=== PATIENT | female | born 1955 | race Caucasian/White ===

== ENCOUNTER 2021-04-14 04:25 | Inpatient (IN) ==
[2021-04-14] MEDS ORDERED: ONDANSETRON 4 MG/2 ML VIAL IV STA (04:54)
[2021-04-14] MEDS ORDERED: ENOXAPARIN 100 MG/ML SYRINGE SUBCUT STA (04:54)
[2021-04-14] MEDS ORDERED: NITROGLYCERIN 2% OINT 1 INCH/GM PACK TOP STA (04:54)
[2021-04-14] MEDS ORDERED: MORPHINE 4 MG/1 ML VIAL IV STA (05:04)
[2021-04-14] MEDS ORDERED: ENOXAPARIN 120 MG/0.8 ML SYRINGE SUBCUT ONE (05:07)
[2021-04-14 05:36] LABS: Basophils # 0.1 10*3/uL (0.0-0.2); Basophils % 0.6 % (0.0-0.8); Eosinophils # 0.1 10*3/uL (0.0-0.87); Eosinophils % 0.7 % (0.00-10.9); Hematocrit 29.2 VOL% (35.7-47.0); Hemoglobin 8.7 GM/DL (12.0-16.0); Immature Granulocytes % 0.6 %; Immature Granulocytes Absolute 0.05 #; Lymphocytes # 1.6 10*3/uL (1.4-4.0); Lymphocytes % 17.8 % (21.3-54.2); Mean Corpuscular HGB Conc 29.8 GM/DL (32-36); Mean Corpuscular Volume 72.3 FL (87-102); Mean Platelet Volume 10.8 FL (9.6-12.0); Monocytes % 4.5 % (1.7-12.7); Neutrophils % 75.8 % (38.7-73.9); Platelet Count 305 T/CUMM (130-400); Red Blood Count 4.04 MC/CUMM (3.8-5.5); Red Cell Distribution Width 17.5 % (9.3-17.3); White Blood Count 8.8 T/CUMM (4-12)
[2021-04-14 05:41] LABS: PT Patient Result 10.9 SECS (10.5-12.0)
[2021-04-14 05:52] LABS: Alanine Aminotransferase 26 U/L (13-56); Albumin 3.8 G/DL (3.4-5.0); Alkaline Phosphatase 75 U/L (45-117); Aspartate Amino Transferase 31 U/L (0-37); Blood Urea Nitrogen 19 MG/DL (7-18); Calcium 9.2 MG/DL (8.5-10.1); Carbon Dioxide 20 MMOL/L (21-32); Estimated Glom Filtration Rate 96 ML/MIN; Glucose 189 MG/DL (74-106); Osmolality,Calculated 283.5 MOS/KG (273-304); Potassium 3.7 MMOL/L (3.5-5.1); Sodium 139 MMOL/L (136-145)
[2021-04-14] MEDS ORDERED: diphenhydrAMINE CAP 50 MG CAPSULE PO ONE ×2 (07:02→07:30)
[2021-04-14] MEDS ORDERED: DIAZEPAM 5 MG TABLET PO ONE (07:02)
[2021-04-14] MEDS ORDERED: fentaNYL 100 MCG/2 ML VIAL ONE (07:21)
[2021-04-14] MEDS ORDERED: MIDAZOLAM 2 MG/2 ML VIAL ONE ×2 (07:21→07:37)
[2021-04-14] MEDS ORDERED: VERAPAMIL 5 MG/2 ML VIAL ONE (07:23)
[2021-04-14] MEDS ORDERED: diphenhydrAMINE CAP 25 MG CAPSULE PO ONE (07:30)
[2021-04-14] MEDS ORDERED: HYDROmorphone 2 MG/1 ML VIAL ONE (07:37)
[2021-04-14] MEDS ORDERED: diphenhydrAMINE 50 MG/1 ML VIAL ONE (07:37)
[2021-04-14] MEDS ORDERED: ALUM/MAG/SIMETH/LIDO VISC 1:1 30 ML BOTTLE PO ONE (07:50)
[2021-04-14] MEDS ORDERED: ACETAMINOPHEN 325 MG TABLET PO PRN (07:53)
[2021-04-14] MEDS ORDERED: LIDOCAINE 1% 20 ML VIAL ONE (08:03)
[2021-04-14] MEDS ORDERED: HEPARIN/NACL 0.9% 2 UNITS/ML 2,000 UNIT/1,000 ML BAG IV ONE (08:03)
[2021-04-14] MEDS ORDERED: GLUCAGON 1 MG VIAL IM PRN ×2 (08:04→12:21)
[2021-04-14] MEDS ORDERED: DEXTROSE 10% 25 GM/250 ML BAG IV PRN (08:04)
[2021-04-14] MEDS: SODIUM CHLORIDE 0.9% 1,000 ML IV SCH ×2 (08:10→18:17)
[2021-04-14] MEDS ORDERED: RANOLAZINE 500 MG TABLET PO SCH (09:00)
[2021-04-14] MEDS ORDERED: METOPROLOL SUCCINATE XL 25 MG TABLET PO SCH (09:00)
[2021-04-14] MEDS ORDERED: FAMOTIDINE 20 MG TABLET PO SCH (09:00)
[2021-04-14] MEDS ORDERED: PANTOPRAZOLE 40 MG TABLET PO SCH ×2 (09:00→12:21)
[2021-04-14] MEDS ORDERED: INSULIN REGULAR 100 UNIT/ML SUBCUT SCH (11:30)
[2021-04-14] MEDS ORDERED: ONDANSETRON 4 MG/2 ML VIAL IV PRN (12:21)
[2021-04-14] MEDS ORDERED: tiZANidine 4 MG TABLET PO PRN (12:21)
[2021-04-14] MEDS ORDERED: SODIUM CHLORIDE 0.9% 1,000 ML IV SCH (12:21)
[2021-04-14] MEDS ORDERED: traMADol 50 MG TABLET PO PRN (12:21)
[2021-04-14] MEDS ORDERED: MAGNESIUM SULF RIDER 2 GM/50 ML PREMIX IV PRN (12:21)
[2021-04-14] MEDS ORDERED: MORPHINE 2 MG/1 ML SYRINGE IV PRN (12:21)
[2021-04-14] MEDS ORDERED: POTASSIUM CHLORIDE 20 MEQ TABLET PO PRN (12:21)
[2021-04-14] MEDS ORDERED: MAGNESIUM SULF RIDER 4 GM/100 ML PREMIX IV PRN (12:21)
[2021-04-14] MEDS ORDERED: NITROGLYCERIN 2% OINT 1 INCH/GM PACK TOP SCH (12:21)
[2021-04-14] MEDS ORDERED: DEXTROSE 10% 250 ML BAG IV PRN (12:21)
[2021-04-14] MEDS ORDERED: ENOXAPARIN 40 MG/0.4 ML SYRINGE SUBCUT SCH (12:21)
[2021-04-14] MEDS: INSULIN REGULAR 100 UNIT/ML SUBCUT SCH ×3 (12:32→23:58)
[2021-04-14] MEDS ORDERED: POTASSIUM CHLORIDE 10 MEQ TABLET PO PRN (12:42)
[2021-04-14 13:04] LABS: % Iron Saturation 4.4 % (18-50)
[2021-04-14 13:09] LABS: VLDL Cholesterol 66.4 MG/DL
[2021-04-14] MEDS: GABAPENTIN 300 MG CAPSULE PO SCH ×3 (13:09→20:23)
[2021-04-14] MEDS: ISOSORBIDE MONONITRATE 30 MG TABLET PO SCH (13:09)
[2021-04-14] MEDS: ASPIRIN EC 81 MG TABLET PO SCH (13:09)
[2021-04-14] MEDS: MAGNESIUM CHLORIDE 64 MG TABLET PO SCH (13:10)
[2021-04-14] MEDS: lisinopriL 20 MG TABLET PO SCH (13:10)
[2021-04-14] MEDS: LORATADINE 10 MG TABLET PO SCH (15:17)
[2021-04-14] MEDS: OMEGA 3 ACID ETHYL ESTERS 1 GM CAPSULE PO SCH ×2 (15:17→20:23)
[2021-04-14] MEDS: FENOFIBRATE 145 MG TABLET PO SCH (18:17)
[2021-04-14] MEDS: ROSUVASTATIN 20 MG TABLET PO SCH (18:17)
[2021-04-14] MEDS: DULoxetine 30 MG CAPSULE PO SCH (20:23)
[2021-04-14] MEDS: METOPROLOL SUCCINATE XL 50 MG TABLET PO SCH (20:24)
[2021-04-14] MEDS: ZALEPLON 5 MG CAPSULE PO SCH (20:24)
[2021-04-14] MEDS: PANTOPRAZOLE 40 MG TABLET PO SCH (20:24)
[2021-04-15] MEDS ORDERED: MORPHINE 4 MG/1 ML VIAL IV PRN (00:05)
[2021-04-15 06:56] LABS: Calcium 8.7 MG/DL (8.5-10.1); Osmolality,Calculated 280.4 MOS/KG (273-304); Potassium 3.7 MMOL/L (3.5-5.1)
[2021-04-15 07:09] LABS: Basophils % 0.4 % (0.0-0.8); Eosinophils # 0.1 10*3/uL (0.0-0.87); Hematocrit 30.2 VOL% (35.7-47.0); Immature Granulocytes % 0.6 %; Immature Granulocytes Absolute 0.07 #; Mean Corpuscular HGB Conc 29.1 GM/DL (32-36); Mean Corpuscular Volume 73.7 FL (87-102); Mean Platelet Volume 11.2 FL (9.6-12.0); Monocytes % 5.8 % (1.7-12.7); Neutrophils % 74.2 % (38.7-73.9); Platelet Count 369 T/CUMM (130-400); Red Cell Distribution Width 18.1 % (9.3-17.3); White Blood Count 10.8 T/CUMM (4-12)
[2021-04-15 07:10] LABS: Hemoglobin 8.8 GM/DL (12.0-16.0)
[2021-04-15] MEDS: INSULIN REGULAR 100 UNIT/ML SUBCUT SCH ×3 (07:12→18:05)
[2021-04-15] MEDS ORDERED: LACTATED RINGERS 1,000 ML IV SCH (08:00)
[2021-04-15] MEDS ORDERED: propofoL 200 MG/20 ML VIAL IV ONE (09:21)
[2021-04-15] MEDS ORDERED: LIDOCAINE 2% 5 ML VIAL ONE (09:21)
[2021-04-15] MEDS ORDERED: FERRIC GLUCONATE COMPLEX 125 MG in SODIUM CHLORIDE 0.9% 100 ML IV ONE (11:00)
[2021-04-15] MEDS: LINACLOTIDE 145 MCG CAPSULE PO SCH (11:28)
[2021-04-15] MEDS: GABAPENTIN 300 MG CAPSULE PO SCH ×3 (11:29→21:19)
[2021-04-15] MEDS: OMEGA 3 ACID ETHYL ESTERS 1 GM CAPSULE PO SCH ×2 (11:29→21:20)
[2021-04-15] MEDS: LORATADINE 10 MG TABLET PO SCH (11:29)
[2021-04-15] MEDS: ISOSORBIDE MONONITRATE 30 MG TABLET PO SCH (11:29)
[2021-04-15] MEDS: ASPIRIN EC 81 MG TABLET PO SCH (11:30)
[2021-04-15] MEDS: CALCIUM (CARBONATE) 500 MG TABLET PO SCH (11:30)
[2021-04-15] MEDS: PANTOPRAZOLE 40 MG TABLET PO SCH (11:30)
[2021-04-15] MEDS: MAGNESIUM CHLORIDE 64 MG TABLET PO SCH (11:30)
[2021-04-15] MEDS: METOPROLOL SUCCINATE XL 50 MG TABLET PO SCH ×2 (11:30→21:19)
[2021-04-15] MEDS: lisinopriL 20 MG TABLET PO SCH (11:30)
[2021-04-15] MEDS: NON-FORMULARY MEDICATION (L. Gasseri-B. Bifidum-B Longum [Phillips' Colon Health] 1.5 bill PO SCH (11:59)
[2021-04-15] MEDS: SODIUM CHLORIDE 0.9% 1,000 ML IV SCH (20:02)
[2021-04-15] MEDS: PANTOPRAZOLE 40 MG VIAL IV SCH (21:18)
[2021-04-15] MEDS: FENOFIBRATE 145 MG TABLET PO SCH (21:19)
[2021-04-15] MEDS: DULoxetine 30 MG CAPSULE PO SCH (21:19)
[2021-04-15] MEDS: ROSUVASTATIN 20 MG TABLET PO SCH (21:20)
[2021-04-15] MEDS: ZALEPLON 5 MG CAPSULE PO SCH (21:20)
[2021-04-16] MEDS: INSULIN REGULAR 100 UNIT/ML SUBCUT SCH ×4 (01:05→18:55)
[2021-04-16 05:47] LABS: Basophils % 0.4 % (0.0-0.8); Eosinophils # 0.2 10*3/uL (0.0-0.87); Eosinophils % 2.4 % (0.00-10.9); Hematocrit 31.6 VOL% (35.7-47.0); Hemoglobin 9.3 GM/DL (12.0-16.0); Immature Granulocytes % 0.8 %; Immature Granulocytes Absolute 0.07 #; Lymphocytes # 2.2 10*3/uL (1.4-4.0); Lymphocytes % 24.2 % (21.3-54.2); Mean Corpuscular HGB Conc 29.4 GM/DL (32-36); Mean Corpuscular Volume 75.1 FL (87-102); Mean Platelet Volume 11.3 FL (9.6-12.0); Monocytes % 7.1 % (1.7-12.7); NRBC # 0.02 10*3/uL; Neutrophils % 65.1 % (38.7-73.9); Platelet Count 269 T/CUMM (130-400); Red Blood Count 4.21 MC/CUMM (3.8-5.5); Red Cell Distribution Width 18.1 % (9.3-17.3); White Blood Count 8.9 T/CUMM (4-12)
[2021-04-16] MEDS: LINACLOTIDE 145 MCG CAPSULE PO SCH (09:07)
[2021-04-16] MEDS: ASPIRIN EC 81 MG TABLET PO SCH (09:08)
[2021-04-16] MEDS: MAGNESIUM CHLORIDE 64 MG TABLET PO SCH (09:08)
[2021-04-16] MEDS: GABAPENTIN 300 MG CAPSULE PO SCH ×3 (09:08→21:25)
[2021-04-16] MEDS: METOPROLOL SUCCINATE XL 50 MG TABLET PO SCH ×2 (09:10→21:25)
[2021-04-16] MEDS: lisinopriL 20 MG TABLET PO SCH (09:10)
[2021-04-16] MEDS: OMEGA 3 ACID ETHYL ESTERS 1 GM CAPSULE PO SCH ×2 (09:11→21:24)
[2021-04-16] MEDS: CALCIUM (CARBONATE) 500 MG TABLET PO SCH (09:11)
[2021-04-16] MEDS: ISOSORBIDE MONONITRATE 30 MG TABLET PO SCH (09:11)
[2021-04-16] MEDS: LORATADINE 10 MG TABLET PO SCH (09:11)
[2021-04-16] MEDS: PANTOPRAZOLE 40 MG VIAL IV SCH ×2 (09:12→21:29)
[2021-04-16] MEDS: NON-FORMULARY MEDICATION (L. Gasseri-B. Bifidum-B Longum [Phillips' Colon Health] 1.5 bill PO SCH (09:17)
[2021-04-16] MEDS: FERRIC GLUCONATE COMPLEX 125 MG in SODIUM CHLORIDE 0.9% 100 ML IV SCH (09:22)
[2021-04-16] MEDS: SODIUM CHLORIDE 0.9% 1,000 ML IV SCH (18:55)
[2021-04-16] MEDS: DULoxetine 30 MG CAPSULE PO SCH (21:24)
[2021-04-16] MEDS: ZALEPLON 5 MG CAPSULE PO SCH (21:24)
[2021-04-16] MEDS: FENOFIBRATE 145 MG TABLET PO SCH (21:24)
[2021-04-16] MEDS: ROSUVASTATIN 20 MG TABLET PO SCH (21:25)
[2021-04-17] MEDS: INSULIN REGULAR 100 UNIT/ML SUBCUT SCH ×4 (00:20→18:28)
[2021-04-17 07:07] LABS: Basophils % 0.5 % (0.0-0.8); Eosinophils # 0.3 10*3/uL (0.0-0.87); Hematocrit 32.3 VOL% (35.7-47.0); Hemoglobin 9.6 GM/DL (12.0-16.0); Immature Granulocytes % 1.2 %; Lymphocytes # 1.9 10*3/uL (1.4-4.0); Lymphocytes % 22.5 % (21.3-54.2); Mean Corpuscular HGB Conc 29.7 GM/DL (32-36); Mean Corpuscular Volume 75.8 FL (87-102); Monocytes % 7.2 % (1.7-12.7); NRBC # 0.04 10*3/uL; Neutrophils % 64.6 % (38.7-73.9); Platelet Count 152 T/CUMM (130-400); Red Blood Count 4.26 MC/CUMM (3.8-5.5); Red Cell Distribution Width 18.6 % (9.3-17.3); White Blood Count 8.2 T/CUMM (4-12)
[2021-04-17 07:59] LABS: Anisocytosis 2+; Hypochromia 3+
[2021-04-17 08:00] LABS: Microcytosis 2+; Spherocytes Few
[2021-04-17 08:01] LABS: Platelet Estimate Adequate; Polychromasia Slight
[2021-04-17] MEDS: ASPIRIN EC 81 MG TABLET PO SCH (09:21)
[2021-04-17] MEDS: ISOSORBIDE MONONITRATE 30 MG TABLET PO SCH (09:21)
[2021-04-17] MEDS: METOPROLOL SUCCINATE XL 50 MG TABLET PO SCH ×2 (09:21→21:07)
[2021-04-17] MEDS: LINACLOTIDE 145 MCG CAPSULE PO SCH (09:21)
[2021-04-17] MEDS: MAGNESIUM CHLORIDE 64 MG TABLET PO SCH (09:21)
[2021-04-17] MEDS: CALCIUM (CARBONATE) 500 MG TABLET PO SCH (09:21)
[2021-04-17] MEDS: lisinopriL 20 MG TABLET PO SCH (09:22)
[2021-04-17] MEDS: OMEGA 3 ACID ETHYL ESTERS 1 GM CAPSULE PO SCH ×2 (09:22→21:07)
[2021-04-17] MEDS: NON-FORMULARY MEDICATION (L. Gasseri-B. Bifidum-B Longum [Phillips' Colon Health] 1.5 bill PO SCH (09:22)
[2021-04-17] MEDS: LORATADINE 10 MG TABLET PO SCH (09:22)
[2021-04-17] MEDS: GABAPENTIN 300 MG CAPSULE PO SCH ×3 (09:22→21:07)
[2021-04-17] MEDS: PANTOPRAZOLE 40 MG VIAL IV SCH ×2 (09:25→21:12)
[2021-04-17] MEDS: FERRIC GLUCONATE COMPLEX 125 MG in SODIUM CHLORIDE 0.9% 100 ML IV SCH (09:28)
[2021-04-17] MEDS ORDERED: BISACODYL 5 MG TABLET PO ONE (15:00)
[2021-04-17] MEDS ORDERED: POLYETHYLENE GLYCOL POWDER 255 GM BOTTLE PO ONE (18:00)
[2021-04-17] MEDS: FENOFIBRATE 145 MG TABLET PO SCH (21:07)
[2021-04-17] MEDS: DULoxetine 30 MG CAPSULE PO SCH (21:07)
[2021-04-17] MEDS: ROSUVASTATIN 20 MG TABLET PO SCH (21:07)
[2021-04-17] MEDS: ZALEPLON 5 MG CAPSULE PO SCH (21:07)
[2021-04-18] MEDS: INSULIN REGULAR 100 UNIT/ML SUBCUT SCH ×2 (00:22→06:43)
[2021-04-18] MEDS: SODIUM CHLORIDE 0.9% 1,000 ML IV SCH (04:53)
[2021-04-18] MEDS ORDERED: POLYETHYLENE GLYCOL POWDER 255 GM BOTTLE PO ONE (05:00)
[2021-04-18 05:50] LABS: PT Patient Result 11.3 SECS (10.5-12.0)
[2021-04-18 06:25] LABS: Basophils % 0.5 % (0.0-0.8); Eosinophils # 0.4 10*3/uL (0.0-0.87); Eosinophils % 4.8 % (0.00-10.9); Hematocrit 34.3 VOL% (35.7-47.0); Immature Granulocytes % 0.8 %; Immature Granulocytes Absolute 0.06 #; Lymphocytes # 1.8 10*3/uL (1.4-4.0); Mean Corpuscular HGB Conc 29.2 GM/DL (32-36); Mean Corpuscular Volume 76.9 FL (87-102); Mean Platelet Volume 12.2 FL (9.6-12.0); Monocytes % 6.4 % (1.7-12.7); NRBC # 0.02 10*3/uL; Neutrophils % 63.5 % (38.7-73.9); Platelet Count 143 T/CUMM (130-400); Red Blood Count 4.46 MC/CUMM (3.8-5.5); Red Cell Distribution Width 19.8 % (9.3-17.3); White Blood Count 7.6 T/CUMM (4-12)
[2021-04-18] MEDS ORDERED: LIDOCAINE 2% 5 ML VIAL ONE (09:03)
[2021-04-18] MEDS ORDERED: propofoL 200 MG/20 ML VIAL IV ONE ×2 (09:03→09:15)
[2021-04-18] MEDS ORDERED: ONDANSETRON 4 MG/2 ML VIAL ONE (09:04)
[2021-04-18] MEDS ORDERED: LACTATED RINGERS 1,000 ML IV SCH ×2 (09:18→09:30)
[2021-04-18 10:27] VITALS: BP 144/73
[2021-04-18] MEDS: METOPROLOL SUCCINATE XL 50 MG TABLET PO SCH (10:51)
[2021-04-18] MEDS: OMEGA 3 ACID ETHYL ESTERS 1 GM CAPSULE PO SCH (10:52)
[2021-04-18] MEDS: ISOSORBIDE MONONITRATE 30 MG TABLET PO SCH (10:52)
[2021-04-18] MEDS: CALCIUM (CARBONATE) 500 MG TABLET PO SCH (10:53)
[2021-04-18] MEDS: GABAPENTIN 300 MG CAPSULE PO SCH (10:53)
[2021-04-18] MEDS: LORATADINE 10 MG TABLET PO SCH (10:53)
[2021-04-18] MEDS: lisinopriL 20 MG TABLET PO SCH (10:53)
[2021-04-18] MEDS: MAGNESIUM CHLORIDE 64 MG TABLET PO SCH (10:54)
[2021-04-18] MEDS: PANTOPRAZOLE 40 MG VIAL IV SCH (10:54)
[2021-04-18] MEDS: ASPIRIN EC 81 MG TABLET PO SCH (10:54)
[2021-04-18] MEDS: FERRIC GLUCONATE COMPLEX 125 MG in SODIUM CHLORIDE 0.9% 100 ML IV SCH (11:20)
[2021-04-18] MEDS: NON-FORMULARY MEDICATION (L. Gasseri-B. Bifidum-B Longum [Phillips' Colon Health] 1.5 bill PO SCH (11:21)
[2021-04-18] MEDS: LINACLOTIDE 145 MCG CAPSULE PO SCH (11:21)
== END 2021-04-18 14:35 | disposition home or self-care (01) | DRG 811 ==
LOC: EDUNIT# → EDBD → N.ED 04:25 → N.EDINP 04:25 → N.5E 07:30
PROVIDERS: ADMIT Internal Medicine Cardiovascular Disease; ATTEND Internal Medicine Cardiovascular Disease
PROC: CLCCHCL (ICD-10-PCS; 2021-04-14 07:45)

== ENCOUNTER 2021-05-30 21:14 | Observation (INO) ==
[2021-05-30] MEDS ORDERED: ONDANSETRON 4 MG/2 ML VIAL IV STA (21:47)
[2021-05-30] MEDS ORDERED: SODIUM CHLORIDE 0.9% 1,000 ML IV STA (21:47)
[2021-05-30] MEDS ORDERED: PANTOPRAZOLE INJ 80 MG in SODIUM CHLORIDE 0.9% 100 ML IV STA ×2 (21:47→21:49)
[2021-05-30 21:55] LABS: Basophils % 0.5 % (0.0-0.8); Eosinophils % 0.2 % (0.00-10.9); Hematocrit 33.2 VOL% (35.7-47.0); Hemoglobin 10.3 GM/DL (12.0-16.0); Immature Granulocytes % 0.4 %; Immature Granulocytes Absolute 0.03 #; Lymphocytes # 1.7 10*3/uL (1.4-4.0); Lymphocytes % 19.9 % (21.3-54.2); Mean Corpuscular Volume 83.4 FL (87-102); Mean Platelet Volume 11.3 FL (9.6-12.0); Monocytes # 0.2 10*3/uL (0.11-0.8); Monocytes % 2.9 % (1.7-12.7); Neutrophils % 76.1 % (38.7-73.9); Platelet Count 296 T/CUMM (130-400); Red Blood Count 3.98 MC/CUMM (3.8-5.5); Red Cell Distribution Width 23.8 % (9.3-17.3); White Blood Count 8.4 T/CUMM (4-12)
[2021-05-30 22:05] LABS: Alanine Aminotransferase 32 U/L (13-56); Albumin 3.8 G/DL (3.4-5.0); Alkaline Phosphatase 51 U/L (45-117); Aspartate Amino Transferase 21 U/L (0-37); Bilirubin,Total < 0.39 MG/DL (0.20-1.00); Blood Urea Nitrogen 31 MG/DL (7-18); Calcium 9.9 MG/DL (8.5-10.1); Carbon Dioxide 24 MMOL/L (21-32); Chloride 113 MMOL/L (98-107); Estimated Glom Filtration Rate 112 ML/MIN; Glucose 160 MG/DL (74-106); INR 1.1; Osmolality,Calculated 299.6 MOS/KG (273-304); PT Patient Result 12.3 SECS (10.5-12.0); Partial Thromboplastin Time < 20.0 SECS (23.8-32.1); Potassium 3.4 MMOL/L (3.5-5.1); Sodium 146 MMOL/L (136-145)
[2021-05-30] MEDS ORDERED: PANTOPRAZOLE INJ 200 MG in SODIUM CHLORIDE 0.9% 250 ML IV SCH (23:00)
[2021-05-30] MEDS ORDERED: MORPHINE 2 MG/1 ML SYRINGE IV PRN (23:36)
[2021-05-30] MEDS ORDERED: ONDANSETRON 4 MG/2 ML VIAL IV PRN (23:36)
[2021-05-30] MEDS ORDERED: diphenhydrAMINE CAP 25 MG CAPSULE PO PRN (23:36)
[2021-05-30] MEDS ORDERED: GLUCAGON 1 MG VIAL IM PRN (23:36)
[2021-05-30] MEDS ORDERED: ZALEPLON 5 MG CAPSULE PO PRN (23:36)
[2021-05-30] MEDS ORDERED: ACETAMINOPHEN 325 MG TABLET PO PRN (23:36)
[2021-05-30] MEDS ORDERED: guaiFENesin/DM ER 600-30 MG TABLET PO PRN (23:36)
[2021-05-30] MEDS ORDERED: DEXTROSE 10% 250 ML BAG IV PRN (23:36)
[2021-05-30] MEDS ORDERED: FAMOTIDINE 20 MG/2 ML VIAL IV SCH (23:45)
[2021-05-31] MEDS ORDERED: POTASSIUM CHLORIDE 20 MEQ TABLET PO STA (00:30)
[2021-05-31 05:08] LABS: Basophils # 0.1 10*3/uL (0.0-0.2); Basophils % 0.7 % (0.0-0.8); Eosinophils % 0.1 % (0.00-10.9); Hematocrit 29.1 VOL% (35.7-47.0); Hemoglobin 9.1 GM/DL (12.0-16.0); Immature Granulocytes % 0.4 %; Immature Granulocytes Absolute 0.03 #; Lymphocytes # 2.7 10*3/uL (1.4-4.0); Mean Corpuscular HGB Conc 31.3 GM/DL (32-36); Mean Corpuscular Volume 83.6 FL (87-102); Mean Platelet Volume 11.3 FL (9.6-12.0); Monocytes # 0.5 10*3/uL (0.11-0.8); Monocytes % 6.3 % (1.7-12.7); Neutrophils % 56.5 % (38.7-73.9); Platelet Count 255 T/CUMM (130-400); Red Blood Count 3.48 MC/CUMM (3.8-5.5); Red Cell Distribution Width 24.1 % (9.3-17.3); White Blood Count 7.5 T/CUMM (4-12)
[2021-05-31 05:34] LABS: Calcium 9.2 MG/DL (8.5-10.1); Osmolality,Calculated 299.3 MOS/KG (273-304); Potassium 3.9 MMOL/L (3.5-5.1)
[2021-05-31] MEDS ORDERED: LORATADINE 10 MG TABLET PO SCH (09:00)
[2021-05-31] MEDS ORDERED: DILTIAZEM CD 180 MG CAPSULE PO SCH (09:00)
[2021-05-31] MEDS ORDERED: ROSUVASTATIN 20 MG TABLET PO SCH (09:00)
[2021-05-31] MEDS ORDERED: METOPROLOL SUCCINATE XL 50 MG TABLET PO SCH (09:00)
[2021-05-31] MEDS ORDERED: ISOSORBIDE MONONITRATE 30 MG TABLET PO SCH (09:00)
[2021-05-31] MEDS: FERROUS SULFATE 325 MG TABLET PO SCH ×2 (10:32→13:42)
[2021-05-31] MEDS: GABAPENTIN 600 MG TABLET PO SCH ×2 (10:34→16:31)
[2021-05-31 11:42] LABS: Hematocrit 28.7 VOL% (35.7-47.0)
[2021-05-31 11:59] VITALS: BP 177/71
[2021-05-31] MEDS: INSULIN LISPRO 100 UNIT/ML SUBCUT SCH (13:57)
[2021-05-31] MEDS ORDERED: FENOFIBRATE 145 MG TABLET PO SCH (21:00)
[2021-05-31] MEDS ORDERED: DULoxetine 30 MG CAPSULE PO SCH (21:00)
== END 2021-05-31 16:22 | disposition home or self-care (01) ==
LOC: EDBD → EDUNIT# → N.EDINP 21:14 → N.ED 21:14 → N.3E 05-31 00:55
PROVIDERS: ADMIT Internal Medicine; ATTEND Internal Medicine